=== PATIENT | female | born 1990 | race Caucasian/White ===

== ENCOUNTER 2018-12-10 08:47 | Outpatient (CLI) | payer OTHER ==
--- NOTE | 2018-12-10 10:45 | ULT ---
RIGHT UPPER QUADRANT ULTRASOUND: Date: 12/10/18 INDICATION: Right upper quadrant pain. COMPARISON: None. FINDINGS: No focal hepatic lesion is evident. Visualized aspects of the pancreas appear within normal limits. T he common bile duct measured 2.1 mm. There is appropriate hepatopetal flow within the portal vein. Vi sualized right kidney is normal appearing without evidence of hydronephrosis. Right kidney measured 9 .7 x 3.4 x 2.7 cm. IMPRESSION: No acute abnormality seen within the right upper quadrant. POS: JONATHAN
== END 2018-12-10 08:48 | disposition home or self-care (01) ==
LOC: BICULT 08:47
DX: R10.11 Right upper quadrant pain (principal); E80.7 Disorder of bilirubin metabolism, unspecified; I42.7 Cardiomyopathy due to drug and external agent; T45.1X5A Adverse effect of antineoplastic and immunosuppressive drugs, initial encounter
CPT/HCPCS: 76705